=== PATIENT | male | born 1950 | race Caucasian/White ===

== ENCOUNTER 2016-06-27 14:06 | Inpatient (IN) | payer OTHER ==
[~2016-06-27] VITALS: Ht 170.2 cm; Wt 93.3 kg
[2016-06-27 14:52] LABS: EOSINOPHIL (%) 3.1 % (0-5); EOSINOPHIL COUNT 0.3 K/uL (0-0.3); HEMATOCRIT 38.7 % (38.0-50.0); IMMATURE GRANULOCYTE (%) 0.2 % (0.0-0.7); IMMATURE GRANULOCYTE COUNT 0.2 K/uL; LYMPHOCYTE COUNT 1.3 K/uL (1.0-2.8); MCH 28.6 PG (29.0-34.0); MCHC 33.6 G/DL (30.0-36.0); MCV 85.1 FL (86-99); MEAN PLAT.VOLUME 9.8 uM^3 (9.0-12.4); MONOCYTE (%) 12.4 % (3-12); MONOCYTE COUNT 1.3 K/uL (0-0.8); NEUTROPHIL (%) 71.8 % (45-76); NEUTROPHIL COUNT 7.4 K/uL (1.8-6.4); PLATELET COUNT 214 K/uL (156-360); RBC DIS.WIDTH-CV 15.2 % (11.8-14.6); RBC DIS.WIDTH-SD 46.5 % (39-53); RED BLOOD COUNT 4.55 M/uL (4.00-5.50); WHITE BLOOD COUNT 10.2 K/uL (4.1-10.2)
[2016-06-27 15:00] LABS: CHLORIDE 101 mEq/L (99-109); POTASSIUM 4.1 mEq/L (3.7-5.4); SODIUM 138 mEq/L (136-147)
[2016-06-27 15:02] LABS: GLUCOSE 111 mg/dL (70-99)
[2016-06-27 15:03] LABS: ANION GAP 12 MEQ/L (2-14)
[2016-06-27 15:06] LABS: GFR ESTIMATE (CALCULATED) > 59 mL/min/
[2016-06-27 15:07] LABS: UREA NITROGEN (BUN) 15 mg/dL (9-23)
[2016-06-27] MEDS ORDERED: CIPRO500 MG PO (17:50)
[2016-06-27] MEDS ORDERED: FLONASE16 G1 BOTH NARES (17:51)
[2016-06-27] MEDS ORDERED: GABAPENTIN300 MG PO (17:51)
[2016-06-27] MEDS ORDERED: ZESTRIL2.5 MG PO (17:51)
[2016-06-27] MEDS ORDERED: SINGULAIR10 MG PO (17:52)
[2016-06-27] MEDS ORDERED: CARVEDILOL6.25 MG PO (17:52)
[2016-06-27] MEDS ORDERED: PROTONIX40 MG PO (17:52)
[2016-06-27] MEDS ORDERED: ELAVIL50 MG PO (17:53)
[2016-06-27] MEDS ORDERED: LIPITOR80 MG PO (17:53)
[2016-06-27] MEDS ORDERED: ZYRTEC10 M2 PO (17:53)
[2016-06-27] MEDS ORDERED: ALEVE220 MG PO (17:54)
[2016-06-27] MEDS ORDERED: TREXALL5 MG PO (17:57)
[2016-06-27] MEDS ORDERED: FOLIC ACID0.4 MG PO (17:59)
[2016-06-27 21:12] VITALS: BP 121/71
[2016-06-27 23:37] VITALS: BP 126/74
[2016-06-28 03:24] VITALS: BP 106/59
[2016-06-28 06:55] LABS: ANION GAP 7 MEQ/L (2-14); CHLORIDE 103 MEQ/L (99-109); GFR ESTIMATE (CALCULATED) > 59 mL/min/; GLUCOSE 116 mg/dL (70-99); POTASSIUM 4.1 MEQ/L (3.7-5.4); SAMPLE HEMOLYSIS CHECK 0; SAMPLE ICTERIC CHECK 0; SAMPLE LIPEMIA CHECK 0; SODIUM 137 MEQ/L (136-147); UREA NITROGEN (BUN) 14 mg/dL (9-23)
[2016-06-28 07:04] LABS: HEMATOCRIT 33.8 % (38.0-50.0); MCH 27.9 PG (29.0-34.0); MCHC 32.2 G/DL (30.0-36.0); MCV 86.7 FL (86-99); MEAN PLAT.VOLUME 10.6 uM^3 (9.0-12.4); PLATELET COUNT 203 K/uL (156-360); RBC DIS.WIDTH-CV 15.4 % (11.8-14.6); RBC DIS.WIDTH-SD 48.9 % (39-53)
[2016-06-28 07:12] LABS: WHITE BLOOD COUNT 6.7 K/uL (4.1-10.2)
[2016-06-28 07:38] VITALS: BP 153/72
[2016-06-28 08:11] LABS: Estimated Average Glucose 123 mg/dL (70-123); HEMOGLOBIN A1c (GLYCOHEMOGLOB) 5.9 % HGB (Below 5.7)
[2016-06-28 16:13] VITALS: BP 117/71
[2016-06-28 23:03] VITALS: BP 120/57
[2016-06-29 06:02] LABS: HEMATOCRIT 36.2 % (38.0-50.0); MCH 27.4 PG (29.0-34.0); MCHC 31.8 G/DL (30.0-36.0); MCV 86.4 FL (86-99); MEAN PLAT.VOLUME 9.5 uM^3 (9.0-12.4); PLATELET COUNT 213 K/uL (156-360); RBC DIS.WIDTH-CV 15.3 % (11.8-14.6); RBC DIS.WIDTH-SD 48.4 % (39-53); RED BLOOD COUNT 4.19 M/uL (4.00-5.50); WHITE BLOOD COUNT 7.2 K/uL (4.1-10.2)
[2016-06-29 06:25] LABS: ANION GAP 7 MEQ/L (2-14); CHLORIDE 105 MEQ/L (99-109); GFR ESTIMATE (CALCULATED) > 59 mL/min/; GLUCOSE 110 mg/dL (70-99); POTASSIUM 4.3 MEQ/L (3.7-5.4); SAMPLE HEMOLYSIS CHECK 0; SAMPLE ICTERIC CHECK 0; SAMPLE LIPEMIA CHECK 0; SODIUM 140 MEQ/L (136-147); UREA NITROGEN (BUN) 14 mg/dL (9-23)
[2016-06-29 07:35] VITALS: BP 136/69
[2016-06-29 16:31] VITALS: BP 116/67
[2016-06-29 20:51] VITALS: BP 140/79
[2016-06-29 23:15] VITALS: BP 157/69
[2016-06-30 06:28] LABS: HEMATOCRIT 35.6 % (38.0-50.0); MCH 27.3 PG (29.0-34.0); MCHC 31.7 G/DL (30.0-36.0); MEAN PLAT.VOLUME 9.3 uM^3 (9.0-12.4); PLATELET COUNT 226 K/uL (156-360); RBC DIS.WIDTH-CV 14.9 % (11.8-14.6); RBC DIS.WIDTH-SD 46.6 % (39-53); RED BLOOD COUNT 4.14 M/uL (4.00-5.50); WHITE BLOOD COUNT 6.5 K/uL (4.1-10.2)
[2016-06-30 06:52] LABS: ANION GAP 8 MEQ/L (2-14); CHLORIDE 104 MEQ/L (99-109); GFR ESTIMATE (CALCULATED) > 59 mL/min/; GLUCOSE 106 mg/dL (70-99); POTASSIUM 4.3 MEQ/L (3.7-5.4); SAMPLE HEMOLYSIS CHECK 0; SAMPLE ICTERIC CHECK 0; SAMPLE LIPEMIA CHECK 0; SODIUM 141 MEQ/L (136-147); UREA NITROGEN (BUN) 12 mg/dL (9-23)
[2016-06-30 08:43] VITALS: BP 137/71
[2016-06-30 16:20] VITALS: BP 141/67
[2016-06-30 23:49] VITALS: BP 111/56
[2016-07-01 07:19] VITALS: BP 137/70
[2016-07-01] MEDS ORDERED: ACIDOPHILUS LA1 EACH PO (13:41)
== END 2016-07-01 16:15 | disposition home or self-care (01) | DRG 572 ==
LOC: EME 14:06 → EDOF 17:11 → 5EAST 17:11
PROVIDERS: Hospitalist; Internal Medicine; Physician Assistant
PROC: 0JBR0ZZ Excision of Left Foot Subcutaneous Tissue and Fascia, Open Approach (ICD-10-PCS; principal; 2016-06-28)
DX: L03.115 Cellulitis of right lower limb (principal); L97.514 Non-pressure chronic ulcer of other part of right foot with necrosis of bone; G62.9 Polyneuropathy, unspecified; B96.89 Other specified bacterial agents as the cause of diseases classified elsewhere; M19.90 Unspecified osteoarthritis, unspecified site; I25.2 Old myocardial infarction
CPT/HCPCS: 73630; 73720; 76937; 80048; 80202; 83036; 83605; 85025; 85027; 87040; 87070; 87075; 87147; 87205; 93971; 94660; 99281; 99285; C1894; J0690; J1650; J2543; J3370; J7030; J7050